=== PATIENT | male | born 1985 | race Caucasian/White ===

== ENCOUNTER → 2020-08-14 14:23 | Outpatient (CLI) | payer SELFPAY ==
[2020-08-14 16:15] LABS: Liquefaction Semen YES (YES); PH Semen 7.5 (7-8); Sperm Count 25 x10^6/mL (20-150); Volume Semen 5.5 (1.0-5.0)
[2020-08-14 16:16] LABS: Sperm Morphology 86 %ABNORM (0-30); Sperm Motility 60% % Motile
== END ==
DX: Z31.41 Encounter for fertility testing (principal)
CPT/HCPCS: 89320